=== PATIENT | female | born 1935 | race African-American/Black ===

== ENCOUNTER 2016-10-28 06:11 | Observation (INO) | payer MEDICARE, OTHER ==
--- NOTE | ~2016-10-28 | OP ---
Record Of Operation [facility] [address] [place]. [address] NAME: RAGHU KWON : 35 STATUS : DIS Shade PAT#: [id number] AGE: 81 ADM/REG DATE : 10/28/16 MR#: [id number] REPORT SERV DATE: 10/29/16 DICTATED BY: NORIS WHITLEY DATE: 10/29/16 REPORT STATUS : Draft TRANSCRIBED BY: MODMaria Antonia DATE: 10/29/16 DATE OF PROCEDURE: 10/28/2016 PREOPERATIVE DIAGNOSIS: Left parotid Warthin's tumor. POSTOPERATIVE DIAGNOSIS: Left parotid Warthin's tumor. OPERATIVE PROCEDURES PERFORMED: 1. Left superficial parotidectomy with facial nerve dissection. 2. Left facial nerve neural integrity monitoring. INDICATIONS AND SIGNIFICANT HISTORY: The patient is an 81-year-old female with significant history of an enlarging left facial lesion. The left facial lesion was biopsied by fine needle biopsy technique and suggested Warthin's tumor. The patient was felt to benefit from excision of this rather large lesion, and was scheduled for such. OPERATIVE PROCEDURE AND FINDINGS: After informed consent was obtained, the patient was brought to the operating room and placed on the operating room table in supine position, at which point general endotracheal anesthesia was induced by the Anesthesia Service, and the left orbicularis sara and orbicularis oculi muscles which were set up to be monitored through neural integrity monitoring. A skin incision was made just anterior to the tragus and carried into the upper neck overlying this mass. A skin flap was elevated using sharp and blunt dissection with a Metzenbaum scissor in a face lift fashion. Dissection then began inferiorly and posteriorly to the mass where dissection was taken down to the sternocleidomastoid muscle, and was traced up to the tragus. The left facial nerve was then identified by visual inspection and stimulation. This served as the deep plane of dissection and dissection continued anteriorly along the inferior division to the which the tumor was either at or below the inferior division of the left facial nerve. The tumor was then removed from the neck. Hemostasis was achieved with direct pressure and bipolar cautery being mindful of the left facial nerve branches. At this point specimen was sent to pathology, confirmed a Warthin's tumor, and the wound was closed in several layers consisting of a deep dermal stitch that was preceded by a 7 round Mike-Cruz drain brought out through a stab incision in the back of the neck. Her skin was then approximated with Vicryl at the dermal margins, and then Dermabond was applied to the wound for closure. The patient was then turned back toward Anesthesia, aroused from anesthesia, and taken to the Post-Anesthesia Care Unit in satisfactory condition. COMPLICATIONS: None. ESTIMATED BLOOD LOSS: Less than 20 mL. IV FLUIDS: Per Anesthesia. DLA/MODL Record Of [address] [address] NAME: RAGHU KWON : 35 STATUS : DIS Shade PAT#: [id number] AGE: 81 ADM/REG DATE : 10/28/16 MR#: [id number] REPORT SERV DATE: 10/29/16 DICTATED BY: NORIS WHITLEY DATE: 10/29/16 REPORT STATUS : Draft TRANSCRIBED BY: KIRK DATE: 10/29/16 Noris Whitley M.D. / [id number] CC: Christophe Vora M.D.
[~2016-10-28 06:11] MED LIST: ASAB PO; BISR PR; CERTAVITE PO; D100 PO; DSS PO; JANUMET1 TA1 PO; LANTUSCART SC; LUTEIN PO; MINIPRESS 1 MG C1 MG PO; MOMUD PO; NORCO1 TA1 PO; NORV10 PO; PHENOBARB32.4 MG PO; PRILOSEC40 MG PO; VITA10 PO; VITAMIN D1000 UNI1 PO; VITC500 PO; ZAROX2.5B PO
[2016-10-28 06:47] LABS: BASOPHILS ABSOLUTE 0.14 10/3/uL (0.0-0.16); EOSINOPHILS 3.4 %; EOSINOPHILS ABSOLUTE 0.48 10/3/uL (0.0-0.53); HEMATOCRIT 37.5 % (36.0-48.0); HEMOGLOBIN 12.8 g/dL (12.0-16.0); IMMATURE GRANULOCYTES 0.1 %; IMMATURE GRANULOCYTES ABSOLUTE 0.02 10/3/uL (0.0-0.11); LYMPHOCYTES 24.5 %; LYMPHOCYTES ABSOLUTE 3.42 10/3/uL (0.67-4.30); MEAN CORPUS HGB CONC 34.1 g/dL (32.0-36.0); MEAN CORPUSCULAR HEMOGLOB 28.4 pg (26.0-34.0); MEAN CORPUSCULAR VOLUME 83.1 fL (80-100); MEAN PLATELET VOLUME 11.3 fL (9.2-13.0); MONOCYTES 9.3 %; NEUTROPHILS 61.7 %; PLATELET COUNT 243 10/3/uL (150-400); RED CELL COUNT 4.51 10/6/uL (4.0-5.6)
[2016-10-28 06:48] LABS: MANUAL DIFF NO %
[2016-10-28 06:53] LABS: PARTIAL THROMBO TIME 26.2 SEC (22.5-37.2)
[2016-10-28 06:54] LABS: PROTIME (NOT ORD) 12.9 SEC (12.0-14.5)
== END 2016-10-29 11:37 ==
LOC: SDC 06:11 → 4SO 11:17
PROVIDERS: Otolaryngology
PROC: 00BM0ZZ Excision of Facial Nerve, Open Approach (ICD-10-PCS; 2016-10-28)
PROC: 0CB90ZZ Excision of Left Parotid Gland, Open Approach (ICD-10-PCS; principal; 2016-10-28 07:30)
DX: D11.0 Benign neoplasm of parotid gland (principal); I89.0 Lymphedema, not elsewhere classified; G40.909 Epilepsy, unspecified, not intractable, without status epilepticus; E78.5 Hyperlipidemia, unspecified; K21.9 Gastro-esophageal reflux disease without esophagitis; E11.9 Type 2 diabetes mellitus without complications; D50.9 Iron deficiency anemia, unspecified; Z86.73 Personal history of transient ischemic attack (TIA), and cerebral infarction without residual deficits; Z88.0 Allergy status to penicillin; Z88.5 Allergy status to narcotic agent; Z88.8 Allergy status to other drugs, medicaments and biological substances
CPT/HCPCS: 82962; 85025; 85610; 85730; 88307; 88331; 96374; 96376; A9270-GY; G0378; J0690; J2405; J2710; J3010